=== PATIENT | female | born 1965 | race Caucasian/White ===

== ENCOUNTER → 2017-07-27 | Outpatient (CLI) | payer OTHER ==
[~2017-07-27] MED LIST: HYDR-2758 PO; LOSA25TA4 PO; OMEP20TA63 PO
--- NOTE | 2017-07-27 16:15 | RAD ---
EXAM: Chest 2 views. HISTORY: Persistent cough. COMPARISON: None. FINDINGS: Frontal and lateral views of the chest are obtained. There are no confluent infiltrates. There is no pneumothorax or pleural effusion. The heart is not enlarged. IMPRESSION: 1. No confluent infiltrates.
== END | disposition home or self-care (01) ==
LOC: PMG 10:48
PROVIDERS: ATTEND Nurse Practitioner Family
DX: R05 Cough (principal)
CPT/HCPCS: 71046

== ENCOUNTER → 2017-09-19 | Outpatient (CLI) | payer OTHER ==
--- NOTE | 2017-09-19 16:36 | RAD ---
Renal ultrasound 09/19/2017 Indication: Atrophy of the right kidney. Discussion: Ultrasound evaluation of the kidneys were performed. Static images were submitted to PACS. Comparison is made to CT of the abdomen and pelvis from January 16, 2014. Discussion: Right kidney measures approximately 7.3 cm in length which is small. No hydronephrosis, nephrolithiasis, or focal renal lesion is identified on the right. The right kidney is normal appearance measuring 12.3 cm in length. No nephrolithiasis, focal renal lesion, or hydronephrosis is seen on the left. The bladder is grossly unremarkable in appearance. Right ureteral jet was identified. A left ureteral jet was not. Prevoid bladder volume 61 cc. Post void bladder volume 6 cc. Impression: 1. Right renal atrophy. The findings are similar prior CT scan 2. Unremarkable sonographic appearance of the left kidney
== END | disposition home or self-care (01) ==
LOC: US 14:36
PROVIDERS: ATTEND Nurse Practitioner Family
DX: N26.1 Atrophy of kidney (terminal) (principal)
CPT/HCPCS: 76770

== ENCOUNTER 2018-02-25 15:51 | Emergency (ER) | payer OTHER ==
[~2018-02-25] VITALS: Ht 157.5 cm; Wt 99.6 kg
[~2018-02-25 15:51] MED LIST changes: -LOSA25TA4 PO; +LOSA25TA5 PO
[2018-02-25 17:21] LABS: BACTERIA,URINE 0 /HPF (0-FEW); BILIRUBIN,URINE NEG (NEG); CLARITY,URINE CLEAR; COLOR,URINE YELLOW; GLUCOSE,URINE NEG (NEG); NITRITE,URINE NEG (NEG); RBC,URINE 0 /HPF (0-2); SQUAMOUS EPITHELIAL CELL,UR OCC /LPF; UROBILINOGEN,URINE 0.2 mg/dL (0.2 mg/dL); WBC,URINE 0 /HPF (0-4)
--- NOTE | 2018-02-25 17:29 | PHYS DOC ---
Adult General Chief Complaint Chief Complaint: FLANK PAIN HPI HPI 52-year-old female presents with sudden onset right flank pain. Patient states she was at work when she had sudden pain that she describes as a cramp. The pain is constant. She denies any trauma or overuse injury. She denies fever or chills. She does admit that she is at increased urinary frequency last 2-3 days. Today she has had dysuria. She has no history of frequent UTIs or kidney stones. She denies chance of . Review of Systems Review of Systems Constitutional: Denies fever or chills [] Eyes: Denies change in visual acuity, redness, or eye pain [] HENT: Denies nasal congestion or sore throat [] Respiratory: Denies cough or shortness of breath [] Cardiovascular: No additional information not addressed in HPI [] GI: Denies abdominal pain, nausea, vomiting, bloody stools or diarrhea [] : Dysuria and urinary frequency[] Musculoskeletal: Right flank pain[] Integument: Denies rash or skin lesions [] Neurologic: Denies headache, focal weakness or sensory changes [] Endocrine: Denies polyuria or polydipsia [] All other systems were reviewed and found to be within normal limits, except as documented in this note. Allergies Allergies Allergies Coded Allergies Type Severity Reaction Last Updated Verified No Known Drug Allergies 01/16/14 No Physical Exam Physical Exam Constitutional: Well developed, well nourished, no acute distress, non-toxic appearance. [] HENT: Normocephalic, atraumatic, bilateral external ears normal, oropharynx moist, no oral exudates, nose normal. [] Eyes: PERRLA, EOMI, conjunctiva normal, no discharge. [] Neck: Normal range of motion, no tenderness, supple, no stridor. [] Cardiovascular:Heart rate regular rhythm, no murmur [] Lungs & Thorax: Bilateral breath sounds clear to auscultation [] Abdomen: Bowel sounds normal, soft, no tenderness, no masses, no pulsatile masses. [] Skin: Warm, dry, no erythema, no rash. [] Back: No tenderness, right-sided CVA tenderness[] Extremities: No tenderness, no cyanosis, no clubbing, ROM intact, no edema. [] Neurologic: Alert and oriented X 3, normal motor function, normal sensory function, no focal deficits noted. [] Psychologic: Affect normal, judgement normal, mood normal. [] Current Patient Data Lab Results Laboratory Tests Test 02/25/18 16:50 Urine Collection Type Unknown Urine Color Yellow Urine Clarity Clear Urine pH 5.0 Urine Specific [place] 1.010 Urine Protein Neg (NEG-TRACE) Urine Glucose (UA) Neg mg/dL (NEG) Urine Ketones (Stick) Neg mg/dL (NEG) Urine Blood Trace (NEG) Urine Nitrite Neg (NEG) Urine Bilirubin Neg (NEG) Urine Urobilinogen Dipstick 0.2 mg/dL (0.2 mg/dL) Urine Leukocyte Esterase Neg (NEG) Urine RBC 0 /HPF (0-2) Urine WBC 0 /HPF (0-4) Urine Squamous Epithelial Cells Occ /LPF Urine Bacteria 0 /HPF (0-FEW) EKG EKG [] Radiology/Procedures Radiology/Procedures [] Impressions: EXAM: CT ABDOMEN/PELVIS WITHOUT CONTRAST. HISTORY: Right flank pain, hypertension. Recent cystoscopy. TECHNIQUE: Computed tomography of the abdomen and pelvis was performed without intravenous contrast. COMPARISON: 01/16/2014. FINDINGS: Lung windows through the visualized portions of the bases reveal a moderate hiatal hernia. A 2 mm right lower lobe nodule has been stable since 2014 and is likely benign. Bone windows reveal no suspicious lesions. There is mild stranding along the right aspect of the space of Retzius extending into the right inguinal region. The material is relatively dense suggesting a small amount of hemorrhage. There is no gross hematoma or extension more superiorly into the retroperitoneum. The right kidney is moderately atrophic secondary to multiple cortical scars. A calculus in the right renal lower pole measures 2-3 mm. There is compensatory hypertrophy of the left kidney. There are no left renal or bilateral ureteral calculi. There is no clear ureteral injury by this technique. The uterus is surgically absent. Sigmoid diverticulosis is mild. The appendix is not inflamed. There is no small bowel obstruction. The liver, gallbladder, pancreas, adrenal glands and spleen are unremarkable. There are no pathologically enlarged lymph nodes. IMPRESSION: 1. Small amount of hemorrhage or fluid is suspected within the right space of Retzius extending to the right inguinal region. Correlate with recent procedural findings. There is no gross ureteral injury by this technique. 2. Moderate right renal atrophy secondary to cortical scarring. 2-3 mm right lower pole renal calculus. No ureteral calculi. 3. Moderate hiatal hernia. *One or more of the following individualized dose reduction techniques were utilized for this examination: 1. Automated exposure control. 2. Adjustment of the mA and/or kV according to patient size. 3. Use of iterative reconstruction technique. Electronically signed by: Cinthya Jean MD (02/25/2018 5:58 PM) [facility] DICTATED AND SIGNED BY: CATHY JEAN MD DATE: 02/25/18 426 CC: LETICIA NUNO DO; ALVIN HENRY DO ~ Course & Med Decision Making Course & Med Decision Making Pertinent Labs and Imaging studies reviewed. (See chart for details) The patient's CT shows possible hemorrhage in the space of retzius. It appears to be a small area and contained. Her labs are unremarkable. There is no ureterolithiasis. The small area of hemorrhage could represent the cause of her pain. She is stable for discharge at this time. I will recommend Tylenol and ibuprofen as needed. [] Dragon Disclaimer Dragon Disclaimer This electronic medical record was generated, in whole or in part, using a voice recognition dictation system. Departure Departure: Referrals: ALVIN HENRY DO (PCP) LETICIA NUNO DO Feb 25, 2018 17:29
--- NOTE | 2018-02-25 18:02 | RAD ---
EXAM: CT ABDOMEN/PELVIS WITHOUT CONTRAST. HISTORY: Right flank pain, hypertension. Recent cystoscopy. TECHNIQUE: Computed tomography of the abdomen and pelvis was performed without intravenous contrast. COMPARISON: 01/16/2014. FINDINGS: Lung windows through the visualized portions of the bases reveal a moderate hiatal hernia. A 2 mm right lower lobe nodule has been stable since 2013 and is likely benign. Bone windows reveal no suspicious lesions. There is mild stranding along the right aspect of the space of Retzius extending into the right inguinal region. The material is relatively dense suggesting a small amount of hemorrhage. There is no gross hematoma or extension more superiorly into the retroperitoneum. The right kidney is moderately atrophic secondary to multiple cortical scars. A calculus in the right renal lower pole measures 2-3 mm. There is compensatory hypertrophy of the left kidney. There are no left renal or bilateral ureteral calculi. There is no clear ureteral injury by this technique. The uterus is surgically absent. Sigmoid diverticulosis is mild. The appendix is not inflamed. There is no small bowel obstruction. The liver, gallbladder, pancreas, adrenal glands and spleen are unremarkable. There are no pathologically enlarged lymph nodes. IMPRESSION: 1. Small amount of hemorrhage or fluid is suspected within the right space of Retzius extending to the right inguinal region. Correlate with recent procedural findings. There is no gross ureteral injury by this technique. 2. Moderate right renal atrophy secondary to cortical scarring. 2-3 mm right lower pole renal calculus. No ureteral calculi. 3. Moderate hiatal hernia. *One or more of the following individualized dose reduction techniques were utilized for this examination: 1. Automated exposure control. 2. Adjustment of the mA and/or kV according to patient size. 3. Use of iterative reconstruction technique. Electronically signed by: Cinthya Jean MD (02/25/2018 5:58 PM) [facility]
[2018-02-25 18:13] LABS: BASO % 0 % (0-3); EOS # 0.1 x10^3/uL (0.0-0.7); EOS % 1 % (0-3); HEMOGLOBIN 12.8 g/dL (12.0-15.5); LYMPH # 2.8 x10^3/uL (1.0-4.8); LYMPH % 33 % (24-48); MEAN CORPUSCULAR HEMOGLOBIN 31 pg (25-35); MEAN CORPUSCULAR HGB CONC 34 g/dL (31-37); MEAN CORPUSCULAR VOLUME 92 fL (79-100); MONO # 0.6 x10^3/uL (0.0-1.1); MONO % 7 % (0-9); NEUT # 4.9 x10^3uL (1.8-7.7); NEUT % 59 % (31-73); PLATELET COUNT 291 x10^3/uL (140-400); RED BLOOD COUNT 4.12 x10^6/uL (3.50-5.40); RED CELL DISTRIBUTION WIDTH 13.6 % (11.5-14.5); WHITE BLOOD COUNT 8.5 x10^3/uL (4.0-11.0)
[2018-02-25 18:29] LABS: ALBUMIN 3.5 g/dL (3.4-5.0); CALCIUM 8.9 mg/dL (8.5-10.1); CREATININE 0.7 mg/dL (0.6-1.0); GFR 88.2; TOTAL BILIRUBIN 0.2 mg/dL (0.2-1.0); TOTAL PROTEIN 6.9 g/dL (6.4-8.2)
[2018-02-25 18:36] VITALS: BP 129/79
== END 2018-02-25 18:33 | disposition home or self-care (01) ==
LOC: ER 15:51
DX: R10.9 Unspecified abdominal pain (principal); R35.0 Frequency of micturition; R30.0 Dysuria; N26.1 Atrophy of kidney (terminal); N20.0 Calculus of kidney
CPT/HCPCS: 36415; 74176; 80053; 81001; 85025; 99285-25

== ENCOUNTER → 2018-05-24 | Outpatient (CLI) | payer OTHER ==
[~2018-05-24] MED LIST changes: +HYDR-2155 PO; -HYDR-2758 PO; +LOSA25TA11 PO; -LOSA25TA5 PO
--- NOTE | 2018-05-24 13:09 | RAD ---
Complete abdominal ultrasound 05/24/2018 8:03 AM Clinical History: Elevated liver enzymes Technique: Ultrasound examination of the abdomen was performed, and multiple static images were submitted for review. Comparison: CT of the abdomen and pelvis February 25, 2018 Findings: The pancreas is partially visualized. Visualized portions of the pancreas are unremarkable. Visualized portions of the aorta and IVC are grossly unremarkable. The gallbladder demonstrates no evidence of wall thickening, stones, or sludge. Portal venous flow appears to be normal direction. Common bile duct is nondilated measuring 4 mm. The liver is mildly enlarged measuring 21 cm longitudinally. The liver is mildly echogenic throughout suggesting hepatic steatosis. The right kidney is atrophic in appearance measuring 8 cm longitudinally. The right kidney measures 12.5 cm in length. No hydronephrosis or nephrolithiasis is seen involving either kidney. Spleen is unremarkable in appearance. IMPRESSION: 1.Mild hepatomegaly. Probable hepatic steatosis. 2. Atrophic right kidney. Similar findings noted on prior CT scan. Electronically signed by: Scott Garcia MD (05/24/2018 1:05 PM) [id number]
== END | disposition home or self-care (01) ==
LOC: US 07:34
DX: R16.0 Hepatomegaly, not elsewhere classified (principal); N26.1 Atrophy of kidney (terminal)
CPT/HCPCS: 76700

== ENCOUNTER → 2018-08-29 | Outpatient (CLI) | payer OTHER ==
[~2018-08-29] VITALS: Ht 157.5 cm; Wt 106.6 kg
[~2018-08-29] MED LIST changes: +NORMAL SALINE IV ONE; +SINCALIDE IV ONE
--- NOTE | 2018-08-29 13:05 | RAD ---
Exam performed: Nuclear medicine hepatobiliary scan. History: Abdominal pain for 3 months COMPARISON: None available FINDINGS: Following intravenous administration of 5.5 mCi of Choletec tagged with Tc, sequential gamma camera images of the right upper quadrant of the abdomen were obtained. There is prompt accumulation of radionuclide in the liver which appears to be unremarkable Prompt accumulation in the central intrahepatic biliary radicals, gallbladder, common bile duct and small bowel is noted. Patient was also infused with 2.1mcg of CCK and gallbladder ejection fraction was calculated which measures 23% Impression: 1.. Decreased gallbladder ejection fraction could be biliary dyskinesia or chronic cholecystitis. Electronically signed by: Edmar Olvera MD (08/29/2018 1:02 PM) [id number]
== END | disposition home or self-care (01) ==
LOC: NM 09:14
PROVIDERS: ATTEND Internal Medicine Gastroenterology
DX: R10.11 Right upper quadrant pain (principal); R10.13 Epigastric pain
CPT/HCPCS: 78227; A9537; J2805

== ENCOUNTER → 2019-05-22 | Outpatient (CLI) | payer OTHER ==
[~2019-05-22] MED LIST changes: -NORMAL SALINE IV ONE; -SINCALIDE IV ONE
--- NOTE | 2019-05-22 16:45 | RAD ---
EXAM: Chest, 2 views. HISTORY: Shortness of air. COMPARISON: 07/27/2017. FINDINGS: 2 views of the chest are obtained. There is no infiltrate, pleural effusion or pneumothorax. The heart is normal in size. IMPRESSION: No acute pulmonary finding. Electronically signed by: Joyce Souza MD (05/22/2019 4:42 PM) [facility]
== END | disposition home or self-care (01) ==
LOC: DXRAD 16:29
PROVIDERS: ATTEND Registered Nurse
DX: R05 Cough (principal)
CPT/HCPCS: 71046

== ENCOUNTER 2019-12-10 10:45 | Emergency (ER) | payer OTHER ==
[~2019-12-10] VITALS: Ht 157.5 cm; Wt 104.3 kg
--- NOTE | 2019-12-10 10:59 | PHYS DOC ---
Past History Past Medical History: Fibromyalgia, Hypertension, UTI, Other Past Surgical History: Hysterectomy, Other Alcohol Use: Occasionally Drug Use: None General Adult EDM: Chief Complaint: CP HPI: HPI: 54-year-old female with significant history of hypertension, allergic rhinitis, GERD, who presents for evaluation of chest pressure. Patient reports a 1 day history of anterior diffuse chest pressure that is nonpleuritic and non- radiating. Associated with a few days of mild nonproductive cough, as well as bilateral lower extremity myalgias. Also reports some mild rhinorrhea. Review of Systems: Review of Systems: Gen: No fever, chills. Eyes: No blurred vision, diplopia. ENT: No sore throat. Reports rhinorrhea. CV: No palpitations. Reports chest pressure. Resp. No SOB. Reports cough. GI: No abd pain, N/V. : No dysuria, hematuria. Neuro: No JAMES, dizziness, weakness. MSK: No arthralgia, back pain. Reports myalgias. Skin: No acute rash or lesion. Heart Score: HEART Score for Chest Pain: HEART Score for Chest Pain Response (Comments) Value History Slighlty/Non-Suspicious 0 ECG Nonspecific Repolarizatio 1 Age >45 - < 65 1 Risk Factors 1 or 2 Risk Factors 1 Troponin < Normal Limit 0 Total 3 Risk Factors: Risk Factors: DM, Current or recent (<one month) smoker, HTN, HLP, family history of CAD, obesity. Risk Scores: Score 0 - 3: 2.5% MACE over next 6 weeks - Discharge Home Score 4 - 6: 20.3% MACE over next 6 weeks - Admit for Clinical Observation Score 7 - 10: 72.7% MACE over next 6 weeks - Early Invasive Strategies Allergies: Allergies: Allergies Coded Allergies Type Severity Reaction Last Updated Verified No Known Drug Allergies 01/16/14 No Physical Exam: PE: Gen: NAD. Well nourished. Head: NC/AT. Eyes: No scleral icterus. No conjunctival injection. ENT: MMM. Posterior OP clear. No tonsil hypertrophy. Uvula midline. Neck: Supple. NT. CV: RRR. Peripheral pulses intact. Resp: Slightly diminished globally. No increased work of breathing. Abd: Soft. NT. ND. MSK: No peripheral cyanosis. No edema. No calf asymmetry. Neuro: Awake and alert. Skin. Warm. Dry. Psych: Appropriate mood & affect. EKG: EKG: EKG at 1109. Sinus rhythm. Heart rate 94. Normal intervals. Poor R wave progression. Anteroseptal ST-T changes. No STEMI criteria met. Interpreted by me. Radiology/Procedures: Radiology/Procedures: TECHNIQUE: Portable frontal view of the chest is provided. FINDINGS: The cardiomediastinal silhouette is within normal limits. Lungs are clear. There are no significant pleural effusions. There is no pulmonary vascular congestion. No pneumothorax. No suspicious osseous abnormality. IMPRESSION: There is no acute cardiopulmonary process. Electronically signed by: Allyson Dhaliwal MD (12/10/2019 11:18 AM) [id number] Course & Med Decision Making: Course & Med Decision Making Pertinent Labs and Imaging studies reviewed. (See chart for details) In summary, 54-year-old female with cardiac risk factors of hypertension, obesity, who presents for evaluation of anterior chest pressure, nonproductive cough, rhinorrhea and myalgias. Presenting vital signs are unremarkable. No tachycardia or hypoxia. No fever. Unremarkable cardiorespiratory examination. EKG shows no acute injury pattern. Lab work is otherwise unremarkable as well including negative initial troponin. Given timeline of symptomatology, will obtain delta troponin and reevaluate. 1309: Repeat troponin is negative. Low risk HEART score of 3. Remains well appearing and nontoxic. I considered but do not suspect ACS, PE, dissection. Will DC home with outpatient cardiology F/U. Return precautions given. Nataliya Disclaimer: Nataliya Disclaimer: This electronic medical record was generated, in whole or in part, using a voice recognition dictation system. Departure Departure: Impression: Primary Impression: Chest pain Disposition: 01 HOME/RESIDENCE PRIOR TO ADM Condition: STABLE Referrals: STELLA SNIDER (PCP) DANIELLE DELGADO MD Patient Instructions: Chest Pain (Nonspecific), Wexs-on-Eyyf Justification of Admission: Justification of Admission: Justification of Admission Dx: N/A JEFF NEWTON DO Dec 10, 2019 10:59
--- NOTE | 2019-12-10 11:18 | EKG ---
[address] [address] Test Date: 2019-12-10 Test Time: 11:09:37 Pat Name: AR LOW Department: Room: Gender: F Broadcast Checker: ESTUARDO : 1965 Requested By: JEFF NEWTON Order Number: [id number] Reading MD: Measurements Intervals [place] Rate: 94 P: 46 NC: 152 QRS: -20 QRSD: 104 T: 39 QT: 334 QTc: 418 Interpretive Statements SINUS RHYTHM LEFTWARD AXIS R-S TRANSITION ZONE IN V LEADS DISPLACED TO THE LEFT LEFT VENTRICULAR HYPERTROPHY ABNORMAL ECG RI6.02 No previous ECG available for comparison
--- NOTE | 2019-12-10 11:21 | RAD ---
CHEST AP ONLY 12/10/2019 10:55 AM INDICATION: Chest pain COMPARISON: 05/22/2019 TECHNIQUE: Portable frontal view of the chest is provided. FINDINGS: The cardiomediastinal silhouette is within normal limits. Lungs are clear. There are no significant pleural effusions. There is no pulmonary vascular congestion. No pneumothorax. No suspicious osseous abnormality. IMPRESSION: There is no acute cardiopulmonary process. Electronically signed by: Allyson Dhaliwal MD (12/10/2019 11:18 AM) [id number]
[2019-12-10 11:32] LABS: BASO % 0 % (0-3); EOS # 0.1 x10^3/uL (0.0-0.7); EOS % 1 % (0-3); HEMOGLOBIN 15.1 g/dL (12.0-15.5); LYMPH % 35 % (24-48); MEAN CORPUSCULAR HEMOGLOBIN 31 pg (25-35); MEAN CORPUSCULAR HGB CONC 33 g/dL (31-37); MEAN CORPUSCULAR VOLUME 93 fL (79-100); MONO # 0.5 x10^3/uL (0.0-1.1); MONO % 6 % (0-9); NEUT % 58 % (31-73); PLATELET COUNT 321 x10^3/uL (140-400); RED BLOOD COUNT 4.94 x10^6/uL (3.50-5.40); RED CELL DISTRIBUTION WIDTH 14.7 % (11.5-14.5); WHITE BLOOD COUNT 8.6 x10^3/uL (4.0-11.0)
[2019-12-10 11:43] LABS: CALCIUM 9.9 mg/dL (8.5-10.1); CREATININE 1.2 mg/dL (0.6-1.0); POTASSIUM 4.3 mmol/L (3.5-5.1)
[2019-12-10 11:48] LABS: ALBUMIN/GLOBULIN RATIO 1.1 (1.0-1.7); TOTAL BILIRUBIN 0.3 mg/dL (0.2-1.0); TOTAL PROTEIN 7.7 g/dL (6.4-8.2)
[2019-12-10] MEDS ORDERED: DEXAMETHASONE 4 MG TABLET PO ONE (12:15)
[2019-12-10 13:10] VITALS: BP 120/78
== END 2019-12-10 13:25 | disposition home or self-care (01) ==
LOC: ER 10:45
DX: R07.89 Other chest pain (principal); J34.89 Other specified disorders of nose and nasal sinuses; M79.7 Fibromyalgia; I10 Essential (primary) hypertension; K21.9 Gastro-esophageal reflux disease without esophagitis; Z87.440 Personal history of urinary (tract) infections
CPT/HCPCS: 36415; 71045; 80053; 83735; 84484; 85025; 93005; 99285; J8540

== ENCOUNTER → 2019-12-30 | Outpatient (CLI) | payer OTHER ==
[2019-12-10 13:10] VITALS: BP 120/78
--- NOTE | 2019-12-30 13:55 | CARD ---
MR#: [id number] Date of Study: 12/30/2019 Ordering Physician: LIN JOSHI, Referring Physician: LIN JOSHI, Tech: Catherine Juarez APPROVED REPORT EXAM: Two-dimensional and M-mode echocardiogram with Doppler and color Doppler. Other Information Quality : AverageHR: 80bpm INDICATION Murmur RISK FACTORS Hypertension 2D DIMENSIONS RVDd3.7 (2.9-3.5cm)Left Atrium(2D)4.0 (1.6-4.0cm) IVSd1.1 (0.7-1.1cm)Aortic Root(2D)2.7 (2.0-3.7cm) LVDd4.6 (3.9-5.9cm)LVOT Diameter2.0 (1.8-2.4cm) PWd1.1 (0.7-1.1cm)LVDs3.2 (2.5-4.0cm) FS (%) 30.5 %SV56.0 ml LVEF(%)58.1 (>50%) Aortic Valve AoV Peak Mich.180.8cm/sAoV VTI34.7cm AO Peak GR.13.1mmHgLVOT Peak Mich.108.7cm/s LVOT VTI 21.33cmAO Mean GR.7mmHg GARY (VMAX)1.20fn3BWD (VTI)1.93cm2 Mitral Valve MV E Fgirzkta78.8cm/sMV E Peak Gr.2mmHg MV DECEL [id number] A Rvworzkx12.3cm/s MV E Mean Gr.1mmHgE/A Ratio0.7 Pulmonary Valve PV Peak Wpcxafdh168.6cm/sPV Peak Grad.4mmHg Tricuspid Valve TR P. Ooawxims875hn/sRAP ZMGIFIOH9qlJv TR Peak Gr.28eyMnNCEM20khEg Pulmonary Vein S1 Rsihrtta94.5cm/sD2 Ywhzyubo41.7cm/s LEFT VENTRICLE The left ventricle is normal size. There is mild concentric left ventricular hypertrophy. The left ve ntricular systolic function is normal and the ejection fraction is within normal range. The Ejection Fraction is 50-55%. There is normal LV segmental wall motion. Transmitral Doppler flow pattern is Gra de I-abnormal relaxation pattern. RIGHT VENTRICLE The right ventricle is normal size. There is normal right ventricular wall thickness. The right ventr icular systolic function is normal. ATRIA The left atrium size is normal. The right atrium size is normal. The interatrial septum is intact wit h no evidence for an atrial septal defect or patent foramen ovale as noted on 2-D or Doppler imaging. AORTIC VALVE The aortic valve is normal in structure and function. Doppler and Color Flow revealed no significant aortic regurgitation. There is no significant aortic valvular stenosis. Calculated aortic valve area is 1.9 cm2 with maximum pressure gradient of 13 mmHg and mean pressure gradient of 7 mmHg. MITRAL VALVE The mitral valve is normal in structure and function. There is no evidence of mitral valve prolapse. There is no mitral valve stenosis. Doppler and Color-flow revealed trace mitral regurgitation. TRICUSPID VALVE The tricuspid valve is normal in structure and function. Doppler and Color Flow revealed trace tricus pid regurgitation with an estimated There is no tricuspid valve stenosis. PULMONIC VALVE The pulmonic valve is not well visualized. Doppler and Color Flow revealed no pulmonic valvular regur gitation. There is no pulmonic valvular stenosis. GREAT VESSELS The aortic root is normal in size. The ascending aorta is Mildly dilated at 3.7 cm The IVC is normal in size and collapses >50% with inspiration. PERICARDIAL EFFUSION There is no evidence of significant pericardial effusion. Critical Notification Critical Value: No <Conclusion> The left ventricular systolic function is normal and the ejection fraction is within normal range. Th e Ejection Fraction is 50-55%. There is normal LV segmental wall motion. The ascending aorta is Mildly dilated at 3.7 cm Signed by : Paxton Avila, Electronically Approved : 12/30/2019 13:54:34
== END | disposition home or self-care (01) ==
LOC: ECHO 11:40
PROVIDERS: ATTEND Internal Medicine Cardiovascular Disease
DX: I51.7 Cardiomegaly (principal); R01.1 Cardiac murmur, unspecified
CPT/HCPCS: 93306

== ENCOUNTER → 2020-03-11 | Outpatient (CLI) | payer OTHER ==
--- NOTE | 2020-03-11 10:14 | RAD ---
ESOPHOGRAM/BARIUM SWALLOW History: Dysphagia, esophageal dilatation Comparison: None. Findings: Chest radiograph was performed, no significant infiltrate or pleural fluid. There is perihilar bronchial wall thickening greater on the right. Barium esophagram was performed. No flow-limiting stricture was identified. There was slightly delayed emptying of the esophagus with patient in prone oblique position although subsequent complete emptying. There is small hiatal hernia. There is mild eccentric wall irregularity of the distal esophagus and the cardiac portion of stomach. There is mild mucosal irregularity of the distal esophagus. Fluoroscopy time 0.7 minutes, 66 images Impression: 1. No flow-limiting stricture was identified. Mild mucosal irregularity of the distal esophagus could be with esophagitis. There is a small hiatal hernia. There is nonspecific eccentric wall irregularity of the distal esophagus and cardiac portion of stomach better evaluated by endoscopy, presumably would have been evaluated on recent procedure. There was mild delay of emptying of the esophagus which could be seen with mild dysmotility. 2. There is nonspecific perihilar bronchial wall thickening. Electronically signed by: Alex Fernandez MD (03/11/2020 10:11 AM) [id number]
== END ==
LOC: RAD 08:11
PROVIDERS: ATTEND Internal Medicine Gastroenterology
DX: K44.9 Diaphragmatic hernia without obstruction or gangrene (principal)
CPT/HCPCS: 74220

== ENCOUNTER → 2020-05-05 | Outpatient (CLI) | payer OTHER ==
--- NOTE | 2020-05-10 10:59 | RAD ---
DATE: 05/05/2020 3:26 PM EXAM: DIGITAL SCREEN BILAT W/CAD HISTORY: Screening COMPARISON: 03/29/2018 Bilateral full field craniocaudal and mediolateral oblique images were obtained using digital technique. This study was interpreted with the benefit of Computerized Aided Detection (CAD). FINDINGS: Breast Density: FATTY The Breast Parenchyma is primarily fatty replaced. Breast parenchyma level density A. No suspicious masses, microcalcifications or architectural distortion is present to suggest malignancy in either breast. The visualized axillae are unremarkable. IMPRESSION: No mammographic evidence of malignancy. BI-RADS CATEGORY: 1 NEGATIVE RECOMMENDED FOLLOW-UP: 12M 12 MONTH FOLLOW-UP Annual screening mammography is recommended, unless clinically indicated sooner based on symptoms or change in physical exam. PQRS compliance statement: Patient information was entered into a reminder system with a target due date for the next mammogram. Mammography is a sensitive method for finding small breast cancers, but it does not detect them all and is not a substitute for careful clinical examination. A negative mammogram does not negate a clinically suspicious finding and should not result in delay in biopsying a clinically suspicious abnormality. "Our facility is accredited by the [employer] Mammography Program."
== END ==
LOC: MAMMO 15:06
PROVIDERS: ATTEND Physician Assistant
DX: Z12.31 Encounter for screening mammogram for malignant neoplasm of breast (principal)
CPT/HCPCS: 77067

== ENCOUNTER → 2021-06-14 | Outpatient (CLI) | payer OTHER ==
--- NOTE | 2021-06-14 16:05 | RAD ---
EXAM: Lumbar spine, 5 views. HISTORY: Pain. COMPARISON: None. FINDINGS: 5 views of the lumbar spine are obtained. There are hypoplastic T12 ribs and 5 nonrib-beari ng lumbar segments. There is no listhesis. There is mild multilevel endplate remodeling. There is fac et arthropathy predominantly at the the lower lumbar levels. There is minimal lumbar levocurvature. T here are incidental cholecystectomy clips. IMPRESSION: Minimal degenerative change, described above. No acute osseous finding. Electronically signed by: Joyce Souza MD (06/14/2021 4:03 PM) [id number]
== END ==
LOC: RAD 15:23
PROVIDERS: ATTEND Physician Assistant
DX: M47.816 Spondylosis without myelopathy or radiculopathy, lumbar region (principal); M43.8X6 Other specified deforming dorsopathies, lumbar region
CPT/HCPCS: 72110